=== PATIENT | male | born 1965 | race Caucasian/White ===

== ENCOUNTER 2019-08-20 01:44 | Day surgery (SDC) | payer OTHER, SELFPAY ==
[2019-08-16 11:59] VITALS: BMI 33.2
[2019-08-20 07:45] VITALS: BP 137/79; PULSE 64; RESP 16; TEMP 36.6; O2SAT 100
[2019-08-20] MEDS: LACTATED RINGERS 1,000 ML 150 ML IV CONT (08:04)
--- NOTE | 2019-08-20 08:21 | WPDANESEPPF ---
Anes - Initial Pre Proc Eval Procedure: Operation Date: 08/20/19 09:00 Proposed Procedures p Colonoscopy - Mark Warren MD Date/Time: 08/20/19 08:21 Surgeon: Mark Warren MD Pre Op Diagnosis: Abnormal Stools Patient Data Age: 54 Gender: M Height: 5 ft 10 in Weight: 102.8 kg Last Vital Signs Temp 36.6 C 08/20/19 07:45 Pulse 64 08/20/19 07:45 Resp 16 08/20/19 07:45 BP 137/79 08/20/19 07:45 Pulse Ox 100 08/20/19 07:45 Allergies Allergy/AdvReac Type Severity Reaction Status Date / Time No Known Allergies Allergy Verified 08/20/19 07:46 Home Medications Medication Instructions Recorded Confirmed Type aspirin [Aspir-81] 81 mg PO DAILY 08/16/19 08/16/19 History atenolol 25 mg PO QAM 08/16/19 08/16/19 History lisinopril-hydrochlorothiazide 1 tablet PO QAM 08/16/19 08/16/19 History simvastatin 40 mg PO HS 08/16/19 08/16/19 History testosterone cypionate 200 mg IM MONTHLY 08/16/19 08/16/19 History Patient hx anesthesia problems: none Family hx anesthesia problems: none [facility] Past Medical History Medical History (Updated 08/20/19 @ 08:22 by Zachery Lennon MD) HTN (hypertension) Hyperlipidemia Obesity UZIEL (obstructive sleep apnea) Family History Family History Mother Hypertension Father Family history of neuropathy Other Diabetes mellitus Family history of cardiovascular disease Social History Social History Alcohol intake: current Anes - Eval Final PreProcedure Day of Procedure 08/20/19 08:21 Patient weight: obese Heart: regular rate and rhythm Lungs: clear to auscultation Airway: Mallampati scale class II Neurological: alert and oriented Last oral intake: >/= 8 hours ASA classification: III Anesthetic plan: proceed Anesthesia type and monitoring: general GIVS and standard monitoring Informed Consent: The patient's anesthetic plan and its attendant risks and benefits were discussed with the patient/family/POA. Questions were solicited and answers provided to the satisfaction of the patient/family/POA.
--- NOTE | 2019-08-20 09:12 | P.CONGI_ITS ---
Assessment and Plan Additional Plan This is a 54-year-old white male patient seen in evaluation at the request of Dr. Moy Ramirez. Patient reports a history of mucus in his stools over many years that is improved on taking Metamucil daily. Over last 2-3 months he has had additional mucus with poor control. He denies any blood in his stools. He denies any bleeding. His weight has remained stable. He is very concerned that he has cancer. He has noticed a nonspecific discomfort in this area over the last 2 months. He denies a fever. He reports his bowel habits current we are normal on Metamucil. Past medical history is significant for hypertension, elevated cholesterol. Anxiety. Current medications include lisinopril, atenololl, simvastatin, aspirin. No stated drug allergies. Family history is noncontributory. Physical exam reveals patient to be alert. Oriented x3. He is anicteric. Lungs are clear to auscultation and percussion. Heart is without extra sounds. Abdominal exam bowel sounds are present soft nontender hepatosplenomegaly. Digital external rectal exam is normal. Impression 1. Change in bowel habits. Rectal discharge noted. 2. Irritable bowel syndrome. Plan is to continue fiber supplementation. A colonoscopy will be performed for screening purposes as well as to assess rectal discharge in change in bowel habits. GI Consult Note Consult date/time: 08/20/19 09:12 HPI: Chavo Ha is a 54 year old male [facility] Past Medical History Medical History (Updated 08/20/19 @ 08:22 by Zachery Lennon MD) HTN (hypertension) Hyperlipidemia Obesity UZIEL (obstructive sleep apnea) Family History Family History Mother Hypertension Father Family history of neuropathy Other Diabetes mellitus Family history of cardiovascular disease Social History Social History Alcohol intake: current Meds Home Medications and Allergies Home Medications Medication Instructions Recorded Confirmed Type aspirin [Aspir-81] 81 mg PO DAILY 08/16/19 08/16/19 History atenolol 25 mg PO QAM 08/16/19 08/16/19 History lisinopril-hydrochlorothiazide 1 tablet PO QAM 08/16/19 08/16/19 History simvastatin 40 mg PO HS 08/16/19 08/16/19 History testosterone cypionate 200 mg IM MONTHLY 08/16/19 08/16/19 History Allergies Allergy/AdvReac Type Severity Reaction Status Date / Time No Known Allergies Allergy Verified 08/20/19 07:46 Vital Signs Vital Signs - 24 hr 08/20/19 07:45 Temperature 36.6 C Pulse Rate 64 Respiratory Rate 16 Blood Pressure 137/79 Pulse Oximetry 100
[2019-08-20 09:39] VITALS: BP 102/52; PULSE 70; RESP 17; O2SAT 100
[2019-08-20 09:49] VITALS: BP 105/53; PULSE 65; RESP 22; O2SAT 98
[2019-08-20 09:59] VITALS: BP 108/55; PULSE 61; RESP 20; O2SAT 100
== END 2019-08-20 10:16 | disposition home or self-care (01) ==
PROVIDERS: PCP Family Medicine; Visit Provider Internal Medicine Gastroenterology
PROC: 0DJD8ZZ Inspection of Lower Intestinal Tract, Via Natural or Artificial Opening Endoscopic (ICD-10-PCS; CPT 45378; principal; 2019-08-20 09:00)
DX: R19.4 Change in bowel habit (principal); K64.8 Other hemorrhoids; I10 Essential (primary) hypertension; E78.5 Hyperlipidemia, unspecified; G47.33 Obstructive sleep apnea (adult) (pediatric); E66.9 Obesity, unspecified; Z68.32 Body mass index [BMI] 32.0-32.9, adult; Z79.82 Long term (current) use of aspirin
CPT/HCPCS: 45378; J2001; J2704; J7120

== ENCOUNTER 2019-11-01 09:01 | Outpatient (CLI) | payer OTHER, SELFPAY ==
--- NOTE | ~2019-11-01 | US_ITS ---
US right upper quadrant INDICATION: Right upper quadrant abdominal pain PROCEDURE: Realtime right upper abdominal ultrasound. COMPARISON: No prior studies for comparison. FINDINGS: The pancreas is normal without focal mass or pancreatic ductal dilation. Liver echotexture is normal without focal mass or intrahepatic biliary dilatation. There is normal directional flow i n the portal vein. The gallbladder is normal without stones, gallbladder wall thickening or pericholecystic fluid. Comm on bile duct measures 5 mm. No sonographic Aldana's sign. IMPRESSION: 1: Normal limited abdominal ultrasound. Reviewed, dictated and finalized at [facility].
== END 2019-11-01 09:02 | disposition home or self-care (01) ==
PROVIDERS: PCP Family Medicine; Visit Provider Internal Medicine Gastroenterology
DX: R10.13 Epigastric pain (principal)
CPT/HCPCS: 76705

== ENCOUNTER 2019-11-21 00:19 | Outpatient (CLI) | payer OTHER, SELFPAY ==
[2019-11-21 18:10] LABS: SARS-CoV-2 RNA PCR Negative
== END 2019-11-21 00:20 | disposition home or self-care (01) ==
LOC: ANHCOVIDDT 00:19
PROVIDERS: PCP Family Medicine; Visit Provider Internal Medicine Gastroenterology
DX: Z20.828 Contact with and (suspected) exposure to other viral communicable diseases (principal); Z01.812 Encounter for preprocedural laboratory examination
CPT/HCPCS: 87635; C9803; U0003

== ENCOUNTER 2019-11-23 03:53 | Day surgery (SDC) | payer OTHER, SELFPAY ==
[2019-11-20 10:54] VITALS: BMI 32.2
[2019-11-23 08:37] VITALS: BP 125/86; PULSE 64; RESP 18; TEMP 36.4; O2SAT 99
[2019-11-23] MEDS: LACTATED RINGERS 1,000 ML 150 ML IV CONT (08:50)
--- NOTE | 2019-11-23 08:52 | P.PNAN_ITS ---
Anes - Initial Pre Proc Eval Procedure: Operation Date: 11/23/19 09:00 Proposed Procedures p Esophagogastroduodenoscopy - Mark Warren MD Date/Time: 11/23/19 08:52 Surgeon: Mark Warren MD Pre Op Diagnosis: Epigastric Pain Patient Data Age: 54 Gender: M Height: 1.78 m Weight: 106.4 kg Last Vital Signs Temp 36.4 C L 11/23/19 08:37 Pulse 64 11/23/19 08:37 Resp 18 11/23/19 08:37 BP 125/86 11/23/19 08:37 Pulse Ox 99 11/23/19 08:37 Allergies Allergy/AdvReac Type Severity Reaction Status Date / Time No Known Allergies Allergy Verified 11/23/19 08:36 Home Medications Medication Instructions Recorded Confirmed Type aspirin [Aspir-81] 81 mg PO DAILY 08/16/19 11/20/19 History atenolol 25 mg PO QAM 08/16/19 11/20/19 History lisinopril-hydrochlorothiazide 1 tablet PO QAM 08/16/19 11/20/19 History simvastatin 40 mg PO HS 08/16/19 11/20/19 History testosterone cypionate 200 mg IM MONTHLY 08/16/19 11/20/19 History Patient hx anesthesia problems: none Family hx anesthesia problems: none [facility] Past Medical History Medical History (Updated 08/20/19 @ 08:22 by Zachery Lennon MD) HTN (hypertension) Hyperlipidemia Obesity UZIEL (obstructive sleep apnea) Social History Social History Alcohol intake: current Anes - Eval Final PreProcedure Day of Procedure 11/23/19 08:52 Patient weight: obese Heart: regular rate and rhythm Lungs: clear to auscultation and normal air movement Airway: Mallampati scale class II Neurological: alert and oriented Last oral intake: >/= 8 hours ASA classification: III Emergent: no Anesthetic plan: proceed Anesthesia type and monitoring: general GIVS and standard monitoring Informed Consent: The patient's anesthetic plan and its attendant risks and benefits were discussed with the patient/family/POA. Questions were solicited and answers provided to the satisfaction of the patient/family/POA.
--- NOTE | 2019-11-23 09:00 | WPDGICN ---
Assessment and Plan Assessment and plan (1) Epigastric abdominal pain: Code(s): R10.13 - Epigastric pain Status: Acute Assessment and Plan: Patient has intermittent episodic abdominal pain. Etiology unclear. Has been rather severe failure. For this reason EGD will be performed to search for source of pain. Recent gallbladder ultrasound was unremarkable. GI Consult Note Consult date/time: 11/23/19 09:00 HPI: Chavo Ha is a 54 year old male Seen in evaluation at the request of Dr. Moy Woo. Patient complains of epigastric pain. He notices pressure in the midepigastric area. He has had 3 episodes over the last month. Typically the pain will last for several hours. Pain will awaken him from sleep. He recently underwent gallbladder ultrasound that was unremarkable. He denies any bleeding or weight loss. His presents for evaluation of ongoing episodic abdominal pain. Past medical history is significant for hypertension and elevated cholesterol. Review of Systems Review of Systems: All systems reviewed & are unremarkable except as noted in HPI and below PMFSH Past Medical History Medical History HTN (hypertension) Hyperlipidemia Obesity UZIEL (obstructive sleep apnea) Family History Family History Mother Hypertension Father Family history of neuropathy Other Diabetes mellitus Family history of cardiovascular disease Social History Social History Alcohol intake: current Meds Home Medications and Allergies Home Medications Medication Instructions Recorded Confirmed Type aspirin [Aspir-81] 81 mg PO DAILY 08/16/19 11/20/19 History atenolol 25 mg PO QAM 08/16/19 11/20/19 History lisinopril-hydrochlorothiazide 1 tablet PO QAM 08/16/19 11/20/19 History simvastatin 40 mg PO HS 08/16/19 11/20/19 History testosterone cypionate 200 mg IM MONTHLY 08/16/19 11/20/19 History Allergies Allergy/AdvReac Type Severity Reaction Status Date / Time No Known Allergies Allergy Verified 11/23/19 08:36 Vital Signs Vital Signs - 24 hr 11/23/19 08:37 Temperature 36.4 C L Pulse Rate 64 Respiratory Rate 18 Blood Pressure 125/86 Pulse Oximetry 99 Exam Narrative: Exam Narrative: Physical exam reveals patient to be alert. Vital signs stable. HEENT exam unremarkable. He is anicteric. Lungs are clear to auscultation and percussion. Heart is without murmur or extra sounds. Abdominal exam bowel sounds present soft nontender with no organomegaly. Digital external rectal exam normal.
[2019-11-23] MEDS: BENZOCAINE (*SP) 60 ML SPRAY CAN (HURRICAINE) 1 SPRAY MUCOUS MEM (09:15)
[2019-11-23 09:24] VITALS: BP 107/76; PULSE 67; RESP 23; O2SAT 100
[2019-11-23 09:34] VITALS: BP 112/79; PULSE 62; RESP 17; O2SAT 99
[2019-11-23 09:35] VITALS: BP 118/78; PULSE 57; RESP 17; O2SAT 99
== END 2019-11-23 09:51 | disposition home or self-care (01) ==
PROVIDERS: PCP Family Medicine; Visit Provider Internal Medicine Gastroenterology
PROC: 0DJ08ZZ Inspection of Upper Intestinal Tract, Via Natural or Artificial Opening Endoscopic (ICD-10-PCS; CPT 43235; principal; 2019-11-23 09:00)
DX: R10.13 Epigastric pain (principal); I10 Essential (primary) hypertension; E78.5 Hyperlipidemia, unspecified; G47.33 Obstructive sleep apnea (adult) (pediatric); E66.9 Obesity, unspecified; Z68.33 Body mass index [BMI] 33.0-33.9, adult; Z79.82 Long term (current) use of aspirin
CPT/HCPCS: 43239; 87081; J2704; J7120

== ENCOUNTER → 2020-02-06 15:42 | Outpatient (CLI) | payer OTHER, SELFPAY ==
--- NOTE | ~2020-02-06 | CT_ITS ---
EXAMINATION: CT abdomen wo con DATE: 02/06/2020 15:57 INDICATION: Epigastric and upper abdominal pain. History of umbilical hernia repair. TECHNIQUE: Computed tomography (CT) of the abdomen was performed without intravenous contrast. Automa paula exposure control and iterative reconstruction technique were employed. Exam dose: 707.49 mGy-cm total exam DLP. COMPARISON: 11/01/2019 right upper quadrant abdominal ultrasound examination FINDINGS: The lung bases are clear. Normal heart size. No pericardial or pleural effusion. A small approximately 2.6 mm stone is identified in the gallbladder. The gallbladder is relatively co ntracted. Gallbladder wall thickness appears within normal limits. No bile duct or pancreatic duct di latation. No hepatic, splenic, pancreatic, and adrenal or renal space-occupying mass lesion is evident on this limited noncontrast examination. No renal calculus or hydroureteronephrosis. Normal caliber and minimal atherosclerotic calcification of the abdominal aorta. No intraperitoneal o r retroperitoneal mass lesion or adenopathy or ascites. Normal appendix. Mild diverticulosis of the right and left colon. No bowel obstruction, bowel wall th ickening, pneumatosis or intraperitoneal free air is detected. Degenerative changes of the thoracic and lumbar spine; no suspicious osteolytic or osteoblastic lesio ns are noted. IMPRESSION: Cholelithiasis Mild colonic diverticulosis Reviewed, dictated and finalized at [facility]. Reviewed, dictated and finalized at location [facility].
== END ==
PROVIDERS: PCP Family Medicine; Visit Provider Family Medicine
DX: K80.20 Calculus of gallbladder without cholecystitis without obstruction (principal)
CPT/HCPCS: 74150